=== PATIENT | male | born 1995 | race Two or more races ===

== ENCOUNTER 2016-11-14 23:22 | Emergency (ER) | payer OTHER ==
[~2016-11-14] VITALS: Ht 177.8 cm; Wt 102.1 kg
[2016-11-14] MEDS ORDERED: Norco 5mg/325mg tab ORAL ONE (23:45)
[2016-11-14 23:48] VITALS: BP 125/78
[2016-11-15] MEDS ORDERED: IBUPROFEN600 MG ORAL (00:21)
--- NOTE | 2016-11-15 00:22 | Emergency Room Report ---
History of Present Illness General Chief Complaint: Shoulder Injury Source: Patient Present Illness HPI This is a 21-year-old male who is right-hand dominant. He works as a nearby restaurant. He presents with shoulder pain. He has a history of right shoulder dislocation once before. Today he was cleaning up and stretching for something when he felt it popped out. Now unable to movement. Pain is 10 out of 10. Worse with movement. No fever or chills but no trauma. No other injury. Allergies: Coded Allergies: No Known Allergies (Unverified , 11/14/16) Patient History Past Medical History: see triage record, old chart reviewed Past Surgical History: none Pertinent Family History: none Social History: Denies: smoking Immunizations: other Reviewed Nursing Documentation: PMH: Agreed, PSxH: Agreed Nursing Documentation-PMH Past Medical History: No History, Except For Hx Hypertension: Yes Review of Systems Eye: Denies: blurred vision, eye pain ENT: Denies: ear pain, nose congestion, throat swelling Respiratory: Denies: cough, shortness of breath Cardiovascular: Denies: chest pain, palpitations Gastrointestinal: Denies: abdominal pain, diarrhea, nausea, vomiting Musculoskeletal: Reports: joint pain, Denies: back pain Skin: Denies: rash Neurological: Denies: headache, numbness Endocrine: Denies: increased thirst, increased urine Hematologic/Lymphatic: Denies: easy bruising All Other Systems: negative except mentioned in HPI Physical Exam Vital Signs Date Time Temp Pulse Resp B/P Pulse Ox O2 Delivery O2 Flow Rate FiO2 11/14/16 23:36 99.1 78 16 125/78 98 Room Air vitals normal Sp02 EP Interpretation: reviewed, normal General Appearance: well appearing, no apparent distress, alert Head: normocephalic, atraumatic Eyes: bilateral eye EOMI, bilateral eye PERRL ENT: hearing grossly normal, normal pharynx Neck: full range of motion, supple, no meningismus Respiratory: chest non-tender, lungs clear, normal breath sounds Cardiovascular #1: regular rate, rhythm, no murmur Gastrointestinal: normal bowel sounds, non tender, no mass, no organomegaly, no bruit, non-distended Musculoskeletal: back normal, gait/station normal, other - rt shoulder: anterior deformity c/w anterior dislocation. arm held in flexion. NVI Psychiatric: mood/affect normal Skin: warm/dry Procedures Splinting Splinting : Consent: Verbal Pre-Made Type: shoulder immobilizer Pre-Proc Neuro Vasc Exam: normal Post-Proc Neuro Vasc Exam: normal Patient Tolerated: Well Complications: None Joint Reduction Joint Reduction : Consent: Verbal Joint Reduction Site: shoulder (R) Procedural Sedation: No Reduction Attempts: One Pre-Procedure NV Exam: Yes Post-Procedure NV Exam: Yes Post Joint Reduction Film: joint reduced Patient Tolerated: Well Complications: None Progress With gentle external rotation I reduced the shoulder w/o problem. Medical Decision Making Diagnostic Impression: Primary Impression: Closed dislocation of right shoulder Qualified Codes: S43.004A - Unspecified dislocation of right shoulder joint, initial encounter ER Course Patient with right anterior shoulder dislocation. Reduced without sedation. Patient felt better now. Good range of motion now. We'll discharge home. No fracture. No evidence of nerve injury. Other X-Ray Diagnostic Results Other X-Ray Diagnostic Results : X-Ray Ordered: rt shoulder xrays Date: November 15, 2016 Time: 00:21 EP Interpretation: Yes Findings: no fractures, no dislocation, no soft tissue swelling, other - reduced Number of Views: 4 Last Vital Signs Date Time Temp Pulse Resp B/P Pulse Ox O2 Delivery O2 Flow Rate FiO2 11/14/16 23:48 99.1 84 16 125/78 98 Room Air Status: improved Disposition: HOME, SELF-CARE Condition: Stable Scripts Ibuprofen* (MOTRIN*) 600 Mg Tablet 600 MG ORAL THREE TIMES A DAY, #30 TAB 0 Refills Prov: RO CHAVEZ M.D. 11/15/16 Patient Instructions: Shoulder Dislocation Additional Instructions: Follow up with Workman's Comp doctor in 7 days. Return if worse. RO CHAVEZ M.D. November 15, 2016 00:22
[2016-11-15 00:28] VITALS: BP 125/78
--- NOTE | 2016-11-17 08:33 | Diagnostic Imaging Report ---
Indications: Fall, right shoulder injury and pain Technique: 3 views right shoulder. Findings: Comparison: None Suboptimal positioning limits evaluation. No acute fracture, dislocation, joint space widening , surrounding soft tissue swelling/foreign body/gas, or other acute changes are identified. Chronic appearing contour deformity distal third right clavicular diaphysis. IMPRESSION: No evidence of acute injury , limited as described Old, healed right clavicle fracture.
== END 2016-11-15 00:45 | disposition home or self-care (01) ==
LOC: EMR 11-15 00:36
DX: S43.004A Unspecified dislocation of right shoulder joint, initial encounter (principal); X50.0XXA Overexertion from strenuous movement or load, initial encounter; Y93.9 Activity, unspecified; Y99.0 Civilian activity done for income or pay; I10 Essential (primary) hypertension
CPT/HCPCS: 29240; 99283